=== PATIENT | female | born 2005 | race Caucasian/White ===

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

== ENCOUNTER 2025-03-10 16:04 | Emergency (ER) | payer OTHER ==
[~2025-03-10] VITALS: Ht 160 cm; Wt 59.0 kg
[2025-03-10 17:23] LABS: BILIRUBIN Negative (Negative); BLOOD 3+ (Negative); CLARITY Clear (Clear); COLOR Red (Yellow); KETONE Negative (Negative); LEUKO ESTERASE 2+ (Negative); NITRITE Negative (Negative); PH 6.5 (4.5-8.0); SPECIFIC GRAVITY 1.015 (1.001-1.030); UROBILINOGEN 0.2 E.U./dl (0.0-1.0)
[2025-03-10 17:29] LABS: RBC TNTC rbc/hpf (0-2); URINE AMPHETAMINES Negative (1000ng/ml); URINE BARBITURATES Negative (200ng/ml); URINE BENZODIAZEPINES Negative (200ng/ml); URINE CANNABINOIDS (THC) Negative (50ng/ml); URINE COCAINE Negative (300ng/ml); URINE METHADONE Negative (300ng/ml); URINE OPIATES Negative (300ng/ml); URINE PHENCYCLIDINE Negative (25ng/ml)
[2025-03-10 17:35] LABS: BASO # 0.0 10*3/uL (0.0-0.1); BASO % 0.1 % (0.0-1.0); EOS # 0.1 10*3/uL (0.0-0.4); EOS % 0.7 % (1.0-4.0); MEAN CELL VOLUME 78.8 fl (81.0-99.0); MEAN CORPUSCULAR HGB 25.3 pg (27.0-31.0); MEAN PLATELET VOLUME 9.2 fl (9.6-12.3); MONO # 0.3 10*3/uL (0.1-1.0); MONO % 4.0 % (3.0-9.0); NEUT # 4.8 10*3/uL (2.3-7.9); NEUT % 66.6 % (47.0-73.0); NUCLEATED RED BLOOD CELL 0.0 % (0.0-0.0); NUCLEATED RED BLOOD CELL 0.0 10*3/uL (0.0-0.0); PLATELET COUNT AUTOMATED 339 10*3/uL (130-400); RED CELL DISTRI WIDTH 17.9 % (0-14.5)
[2025-03-10 17:55] LABS: BUN 12 mg/dl (9-23); SGPT/ALT 16 U/L (5-49)
[2025-03-10 18:05] LABS: ETHYL ALCOHOL < 3.0 mg/dl (<3)
[2025-03-10] MEDS ORDERED: LORazepam 0.5 MG TAB PO ONE (20:15)
[2025-03-10] MEDS ORDERED: MACROBID100 M1 PO (22:19)
[2025-03-10] MEDS ORDERED: Nitrofurantoin Monohydrate/N 100 MG CAP PO ONE (22:20)
== END 2025-03-10 16:33 | disposition home or self-care (01) ==
LOC: ED 16:04
PROVIDERS: Nurse Practitioner Family
DX: O99.345 Other mental disorders complicating the puerperium (principal); F53.0 Postpartum depression; N30.01 Acute cystitis with hematuria; F31.9 Bipolar disorder, unspecified; Z79.899 Other long term (current) drug therapy; Z86.14 Personal history of Methicillin resistant Staphylococcus aureus infection